=== PATIENT | male | born 1980 | race American Indian/Alaskan Native ===

== ENCOUNTER 2022-02-05 09:33 | Emergency (ER) | payer BC ==
--- NOTE | 2022-02-05 11:34 | Emergency Department Report ---
ED General Adult HPI - General Chief complaint: Medical Clearance Stated complaint: BUMPS ON HEAD Time Seen by Provider: 02/05/22 11:28 Source: patient Mode of arrival: Ambulatory Limitations: No Limitations - History of Present Illness Initial comments: 41-year-old male who presents with multiple ulcers to buttocks and head x3 days. Patient denies fevers or chills denies unprotected sex. Patient has a known history for HSV. States HIV negative. No fevers no chills no suspicious travel or contacts. Patient denies fevers or chills. Patient is COVID immunized. - Related Data Previous Rx's Medication Instructions Recorded Last Taken Type Valacyclovir HCl [Valtrex] 1,000 mg PO BID 7 Days #14 tab 02/05/22 Unknown Rx Allergies Allergy/AdvReac Type Severity Reaction Status Date / Time No Known Allergies Allergy Verified 02/05/22 09:40 ED Review of Systems ROS: Stated complaint: BUMPS ON HEAD Other details as noted in HPI Constitutional: denies: chills, fever Eyes: denies: eye pain, eye discharge, vision change ENT: denies: ear pain, throat pain Respiratory: denies: cough, shortness of breath, wheezing Cardiovascular: denies: chest pain, palpitations Endocrine: no symptoms reported Gastrointestinal: denies: abdominal pain, nausea, diarrhea Genitourinary: denies: urgency, dysuria Musculoskeletal: denies: back pain, joint swelling, arthralgia Skin: lesions (Multiple lesions head and neck buttocks painful to touch) Neurological: denies: headache, weakness, paresthesias Psychiatric: denies: anxiety, depression Hematological/Lymphatic: denies: easy bleeding, easy bruising ED Past Medical Hx - Medications Home Medications: Home Medications Medication Instructions Recorded Confirmed Last Taken Type Valacyclovir HCl [Valtrex] 1,000 mg PO BID 7 Days #14 tab 02/05/22 Unknown Rx ED Physical Exam - General Limitations: No Limitations General appearance: alert, in no apparent distress - Head Head exam: Present: atraumatic, normocephalic - Eye Eye exam: Present: normal appearance, EOMI Pupils: Present: normal accommodation - ENT ENT exam: Present: mucous membranes moist - Neck Neck exam: Present: normal inspection - Respiratory Respiratory exam: Present: normal lung sounds bilaterally. Absent: respiratory distress - Cardiovascular Cardiovascular Exam: Present: regular rate, normal rhythm. Absent: systolic murmur, diastolic murmur, rubs, gallop - GI/Abdominal GI/Abdominal exam: Present: soft, normal bowel sounds - Rectal Rectal exam: Present: deferred - Extremities Exam Extremities exam: Present: normal inspection - Back Exam Back exam: Present: normal inspection, full ROM - Neurological Exam Neurological exam: Present: alert, oriented X3 - Psychiatric Psychiatric exam: Present: normal affect - Skin Skin exam: Present: warm, dry, intact, other (Multiple lesions to scalp neck and buttocks pink center painful to touch no weeping or open sores at this time.) ED Course Vital Signs 02/05/22 09:37 Temperature 97 F L Pulse Rate 119 H Respiratory 18 Rate Blood Pressure 138/81 [Left] O2 Sat by Pulse 18 L Oximetry ED Medical Decision Making - Medical Decision Making There is no fevers no chills no cough no nausea vomiting patient is a red-yellow painful to touch plan treat for HSV follow-up with health department for HSV and HIV screening. Patient verbalized agreement and understanding of same patient DC'd home in stable condition at this time Critical care attestation.: If time is entered above; I have spent that time in minutes in the direct care of this critically ill patient, excluding procedure time. ED Disposition Clinical Impression: HSV (herpes simplex virus) infection Disposition: 01 HOME / SELF CARE / HOMELESS Is pt being admited?: No Does the pt Need Aspirin: No Condition: Stable Instructions: Herpes Simplex Test, Genital Herpes Additional Instructions: Medication as prescribed, follow-up with health department in 1 to 2 days for HSV and HIV screening. Prescriptions: Valacyclovir HCl [Valtrex] 1,000 mg PO BID 7 Days #14 tab Referrals: [facility] [Outside] - 3-5 Days Forms: Work/School Release Form(ED) Time of Disposition: 11:34
[2022-02-05 11:56] VITALS: BP 141/58
== END 2022-02-05 11:56 | disposition home or self-care (01) ==
LOC: ED 09:33
DX: B00.9 Herpesviral infection, unspecified (principal)
CPT/HCPCS: 99282